=== PATIENT | female | born 1955 | race African-American/Black ===

== ENCOUNTER → 2021-03-06 11:49 | Outpatient (CLI) | payer OTHER, SELFPAY ==
[2021-03-06 14:10] LABS: COVID19 -Nasal RAPID Negative (Negative)
== END ==
PROVIDERS: PCP Physician Assistant Medical; Visit Provider Nurse Practitioner Family
DX: Z20.822 Contact with and (suspected) exposure to COVID-19 (principal)
CPT/HCPCS: 87635; C9803

== ENCOUNTER 2021-03-08 08:31 | Day surgery (SDC) | payer OTHER, SELFPAY ==
[2021-03-08] VITALS (9 sets, daily range): BP systolic 95–135; BP diastolic 59–85; PULSE 65–78; RESP 16; TEMP 36–36.4; O2SAT 96–100; BMI 28.3
--- NOTE | 2021-03-08 | PATH_ITS ---
[facility] Accession Number: [id number] . 01 Material submitted: . PART A: ileo-cecal valve - IC VALVE BIOPSY PART B: rectum - RECTAL EROSION/ULCER TISSUE BIOPSY . 02 Diagnosis: A. Ileocecal Valve, Biopsy: Tubular adenoma, three fragments. . B. Rectal Erosion/Ulcer, Biopsy: Ulcerated colonic mucosa with ischemica-type changes. Please see comment. Negative for granulomas, dysplasia and malignancy. MRV 03/10/2021 1135 Local . 02 Comment: B) The differential diagnosis for ischemia-type changes includes trauma/prolapse/solitary rectal ulcer syndrome, true vascular ischemia, and infection (i.e., enterohemorrhagic E. coli, C. difficile, etc.). . 02 Electronically signed: . Melanie Fletcher MD, Pathologist NPI- [id number] . 01 Gross description: . Part A: IC VALVE BIOPSY: Received in formalin are 2 fragment(s) of pace, soft tissue measuring 0.4 x 0.2 x 0.2 cm to 0.3 x 0.2 x 0.1 cm submitted entirely in 1 cassette(s) Part B: RECTAL EROSION/ULCER TISSUE BIOPSY: Received in formalin are 4 fragment(s) of pace, soft tissue measuring 0.2 x 0.2 x 0.1 cm to 0.2 x 0.1 x 0.1 cm submitted entirely in 1 cassette(s) /ANGELA 03/09/2021 0405 Local . 02 Pathologist provided ICD-10: D12.0, Z86.010 . 02 CPT . 122103, 143062 Performed at: 01 [facility] [address] [place] [address] [address] [facility], [place], [place] [id number] MD Micha Ponce MD Phone: [phone] Performed at: 02 [facility] [address] [place] [id number] MD Melanie Fletcher MD Phone: [phone]
--- NOTE | 2021-03-08 09:11 | PM.HP.1 ---
History of Present Illness History of Present Illness Date Patient Seen: 03/08/21 Time Patient Seen: 09:11 Chief complaint: DX COLONOSCOPY Patient History Medical History Colon polyp Constipation Encounter for cholecystectomy Fibromyalgia Hypertension PTSD (post-traumatic stress disorder) Tubular adenoma Surgical History History of section History of cholecystectomy Meds Home Medications and Allergies Home Medications Medication Instructions Recorded Confirmed Type Aleve See Rx Instructions .ROUTE 03/07/21 03/08/21 History .COMPLEX PRN Colace 100 mg 03/07/21 History Metamucil 03/07/21 History Vitamin D3 03/07/21 History aspirin 03/07/21 History hydrochlorothiazide 25 mg PO DAILY 03/07/21 03/08/21 History lisinopril 03/07/21 History lisinopril 20 mg tablet 20 mg PO DAILY 03/08/21 03/08/21 History Allergies Allergy/AdvReac Type Severity Reaction Status Date / Time Penicillins Allergy Intermediate Hives Verified 03/08/21 09:00 Sulfa (Sulfonamide Allergy Hives Verified 03/08/21 09:00 Antibiotics) Review of Systems Review of Systems ROS: Yes All systems reviewed with the patient and are negative except as otherwise documented Exam Const General: cooperative and comfortable Orientation: alert HENMS Head: normocephalic Ears: external ears normal Nose: external nose normal Face and sinus: normal facial exam Mouth: oral mucosae normal Eyes General: appearance normal, both eyes and all related structures Neck Neck: normal visual inspection Chest Chest: normal inspection of the chest Resp Effort & Inspection: normal respiratory effort Auscultation: clear to auscultation bilaterally Cardio Rate: regular rate Rhythm: regular rhythm Heart Sounds: no murmurs GI Inspection: normal to inspection Palpation: soft and No tender Auscultation: normal bowel sounds Skin General: no rashes or lesions noted and No jaundice Neuro General: patient alert and moves all extremities Cognition: normal cognition Speech: speech normal Extrem General: no pedal edema Psych Appearance: grossly normal Assessment & Plan Assessment & Plan narrative: Personal history of adenomatous colon polyp. Personal history of constipation. Colonoscopy is pursued today Time Spent With Patient Critical Care time: I spent a total of [] minutes of critical care time on this patient's care today; this time is exclusive of procedural time.
--- NOTE | 2021-03-08 09:13 | PM.PREOP ---
Pre-operative Note COVID-19 COVID-19 status: Negative Result date/Date tested (Pos, Neg/Pending): 03/06/21 Interval Note History & Physical reviewed/Exam performed by Physician: Yes Changes to H&P: No ASA Class (for procedural sedation): II
--- NOTE | 2021-03-08 10:15 | PM.OP.ENDO ---
Operative Date/Time/Diagnoses Date of procedure: 03/08/21 Time of procedure: 10:15 Pre-op diagnosis: Personal history of colon polyps and constipation Post-op diagnosis: same Procedure & Clinicians Study performed: Colonoscopy with hot snare polypectomy and biopsy Same procedure as scheduled: Yes Indications: Personal history of colon polyps and constipation Surgeon: Shane Puente Procedure Notes SCOAP/Timeout: Done Procedure in detail: After the risks and benefits were explained, written and verbal informed consent was obtained. The patient was brought into the procedure room and placed into the left lateral decubitus position. Conscious sedation medication was applied as per nursing documentation. Digital rectal examination was accomplished. The scope was introduced into the patient and advanced under direct visualization to the cecum as identified by the appendiceal orifice and ileocecal valve. The scope was slowly withdrawn to carefully examine the mucosa for any defects or lesions. Comprehensive imaging was accomplished throughout the rectum including the dentate line. The colon was decompressed, the scope was then removed from the patient who tolerated the procedure well. Bowel prep adequate Pediatric colonoscope Scope withdrawal time: 12 minutes Sedation minutes: 27 Complications: none Impression: Patient had a lengthy redundant colon. Abdominal pressure and the internal stiffening eugene were required for cecal intubation. Mild grade 1 and grade 2 internal hemorrhoids were noted nonbleeding nonthrombosed. There was a 6 mm sessile polyp on the ileocecal valve removed with hot snare polypectomy. In the rectum there was a small focus of eroded mucosa that appeared to perhaps represent an early stercoral ulceration. This was targeted for biopsy. Endoscopic diagnosis 1. Colon polyp 2. Grade 1-2 internal hemorrhoids 3. Focal rectal erosion Post-procedure Recommendations: Colonscopy in 5 years Plan for aftercare: 1. Await histopathology 2. Repeat colonoscopy 5 years 3. Aggressive bowel regimen with fiber supplementation for soft regular stools 4. Follow up GI clinic Disposition: PACU
== END 2021-03-08 11:00 | disposition home or self-care (01) ==
PROVIDERS: PCP Physician Assistant Medical; Referring Provider Internal Medicine Gastroenterology; Visit Provider Internal Medicine Gastroenterology
PROC: 0DJD8ZZ Inspection of Lower Intestinal Tract, Via Natural or Artificial Opening Endoscopic (ICD-10-PCS; CPT 45378; principal; 2021-03-08 09:30)
DX: D12.0 Benign neoplasm of cecum (principal); K62.6 Ulcer of anus and rectum; K64.1 Second degree hemorrhoids; Z86.010 Personal history of colon polyps; I10 Essential (primary) hypertension; M79.7 Fibromyalgia; F43.10 Post-traumatic stress disorder, unspecified; F17.200 Nicotine dependence, unspecified, uncomplicated
CPT/HCPCS: 45385; 45380

== ENCOUNTER 2022-01-11 10:45 | Emergency (ER) | payer OTHER, SELFPAY ==
[2022-01-11 10:56] VITALS: BP 169/81; PULSE 76; RESP 15; TEMP 36.1; O2SAT 100; BMI 29.4
--- NOTE | 2022-01-11 10:58 | DI.RAD.S_ITS ---
PROCEDURE: XR SACRUM COCCYX MIN 2V INDICATIONS: FALL ON SATURDAY TECHNIQUE: 3 views of the sacrum and coccyx acquired. COMPARISON: None. FINDINGS: Bones: No fractures or dislocations. No suspicious bony lesions. Soft tissues: Visualized bowel gas pattern is normal. No suspicious soft tissue densities. IMPRESSION: No radiographic evidence of fracture Approved by: Chuck Kong M.D. on 01/11/2022 at 11:06
[2022-01-11] MEDS: KETOROLAC 30 MG/ML VIAL 15 MG IM (12:45)
--- NOTE | 2022-01-11 13:50 | ED.FALL ---
HPI - Fall <SREE Jane - Last Filed: 01/11/22 13:58> General Chief Complaint: Fall Stated Complaint: Fall Saturday, tailbone pain, not getting better Time Seen by Provider: 01/11/22 12:06 Source: patient Mode of arrival: Ambulatory History of Present Illness HPI Narrative: This is a 66-year-old female who presents to the emergency department for worsening tailbone pain after she had a ground level fall four days ago onto her colleagues. She is concerned for a coccygeal fracture, states that she has been taking stool softeners which have been helpful, she will get a donut pillow from pharmacy today but states that her pain is pretty significant. She denies any blood in her stool, denies any weakness, or groin paresthesia. She states that NSAIDs cause her stomach upset, she has been taking Tylenol, states that she takes a leave sometimes, denies any lower extremity sensation changes states sitting is the most painful, she is ambulatory without assistive device.. Related Data Home Medications Medication Instructions Recorded Confirmed Magnus See Rx Instructions .Route 03/07/21 03/08/21 .COMPLEX PRN pain Colace 100 mg 03/07/21 Metamucil 03/07/21 Vitamin D3 03/07/21 aspirin 03/07/21 hydrochlorothiazide 25 mg PO DAILY 03/07/21 03/08/21 lisinopril 03/07/21 lisinopril 20 mg tablet 20 mg PO DAILY 03/08/21 03/08/21 Previous Rx's Medication Instructions Recorded diclofenac sodium 1 % topical gel 2 g topical QID #100 grams 01/11/22 hydroxyzine pamoate 25 mg capsule 25 mg PO BEDTIME #14 caps 01/11/22 (Vistaril) meloxicam 15 mg tablet 15 mg PO DAILY PRN pain #10 tabs 01/11/22 Allergies Allergy/AdvReac Type Severity Reaction Status Date / Time Penicillins Allergy Intermediate Hives Verified 01/11/22 10:56 Sulfa (Sulfonamide Allergy Hives Verified 01/11/22 10:56 Antibiotics) Review of Systems <SREE Jane - Last Filed: 01/11/22 13:58> Review of Systems Narrative: General: denies fever, chills Head/Neck: denies headache, neck pain Eyes: denies visual changes, eye pain Cardio: denies chest pain, palpitations Respiratory: denies shortness of breath, cough GI: denies abdominal pain, nausea, vomiting, or diarrhea : denies dysuria, hematuria or flank pain MSK: denies new joint pain, muscle weakness or swelling, endorses tailbone pain, denies any open wound Skin: denies rash, itching or wound Neuro: denies numbness, tingling, dizziness Patient History <SREE Jane - Last Filed: 01/11/22 13:58> Medical History Colon polyp Constipation Encounter for cholecystectomy Fibromyalgia Hypertension PTSD (post-traumatic stress disorder) Tubular adenoma Surgical History History of section History of cholecystectomy Social History household members: friend(s) Smoking Status: Current some day smoker alcohol intake: current Smoking Status: Current some day smoker alcohol intake frequency: holidays/special occasions only Substance Use Type: does not use Exam <SREE Jane - Last Filed: 01/11/22 13:58> Narrative Exam Narrative: Independently reviewed vitals signs and nursing notes. General: cooperative, comfortable, in no acute distress, well groomed Head: atraumatic, symmetrical facial expressions Neck: supple Eyes: equal round and reactive, EOMI, conjunctiva normal Nose: nares patent, no rhinorrhea Mouth/Throat: moist mucus membranes Cardiovascular: regular rate and rhythm, no peripheral edema, warm extremities Respiratory: normal effort, able to speak in complete sentences, no audible wheezing, stridor, or rales. No retractions or tachypnea. MSK: moves all extremities, neurovascularly intact, no weakness, normal tone Skin: brisk capillary refill, no rash, no erythema Neuro: normal speech and cognition, A&O x3 Psych: mental status is grossly normal, congruent mood, normal affect, pleasant and cooperative Initial Vital Signs Initial Vital Signs: Vital Signs Temperature 96.9 F L 01/11/22 10:56 Pulse Rate 76 01/11/22 10:56 Respiratory Rate 15 01/11/22 10:56 Blood Pressure 169/81 H 01/11/22 10:56 Pulse Oximetry 100 01/11/22 10:56 Oxygen Delivery Method 01/11/22 10:56 <Janiya Mckee DO - Last Filed: 01/13/22 19:43> Initial Vital Signs Initial Vital Signs: Vital Signs Temperature 96.9 F L 01/11/22 10:56 Pulse Rate 76 01/11/22 10:56 Respiratory Rate 15 01/11/22 10:56 Blood Pressure 169/81 H 01/11/22 10:56 Pulse Oximetry 100 01/11/22 10:56 Oxygen Delivery Method 01/11/22 10:56 Course <SREE Jane - Last Filed: 01/11/22 13:58> Orders Ordered: Discontinued Medications Ketorolac Tromethamine (Ketorolac 30 Mg/Ml Vial) 15 mg IM NOW ONE Stop: 01/11/22 12:35 Last Admin: 01/11/22 12:45 Dose: 15 mg Documented By: AT Vital Signs Vital signs: Vital Signs - 8 hr 01/11/22 10:56 Temperature 96.9 F L Pulse Rate 76 Respiratory Rate 15 Blood Pressure 169/81 H Pulse Oximetry 100 Oxygen Delivery Method Room Air <Janiya Mckee DO - Last Filed: 01/13/22 19:43> Orders Ordered: Discontinued Medications Ketorolac Tromethamine (Ketorolac 30 Mg/Ml Vial) 15 mg IM NOW ONE Stop: 01/11/22 12:35 Last Admin: 01/11/22 12:45 Dose: 15 mg Documented By: AT Vital Signs Vital signs: Vital Signs - 8 hr 01/11/22 10:56 Temperature 96.9 F L Pulse Rate 76 Respiratory Rate 15 Blood Pressure 169/81 H Pulse Oximetry 100 Oxygen Delivery Method Room Air MDM - Fall <SREE Jane - Last Filed: 01/11/22 13:58> Imaging Data Extremity x-ray #1: Radiologist's Impression: PROCEDURE:? XR SACRUM COCCYX MIN 2V ? INDICATIONS:? FALL ON SATURDAY ? TECHNIQUE:? 3 views of the sacrum and coccyx acquired.? ? COMPARISON:? None. ? FINDINGS:? ? Bones:? No fractures or dislocations.? No suspicious bony lesions.? ? Soft tissues:? Visualized bowel gas pattern is normal.? No suspicious soft tissue densities.? ? IMPRESSION:? No radiographic evidence of fracture ? ? ? Approved by: Chuck Kong M.D. on 01/11/2022 at 11:06? [facility] Narrative Medical decision making narrative: This is a 66-year-old female who presents to the emergency department for evaluation of her coccygeal pain after a ground level fall onto her tailbone four days ago. Her x-ray of her sacrum and coccyx show no radiographic evidence of fracture. Patient does have any step-offs or exquisite midline pain. She requests a Toradol injection, this was given to her, she was prescribed diclofenac gel, Vistaril to help her sleep, and meloxicam as needed for her pain. She requests Vistaril because she has difficulty getting comfortable and states it has been helpful for her in the past. Encouraged her to follow-up with her primary doctor if her pain gets any worse or if her mobility changes. Encouraged her to use ice, a donut pillow, topical diclofenac gel Vistaril as needed, anti-inflammatories and Tylenol as needed for her pain, and encouraged her you stool softeners to prevent constipation or worsening of her pain. Patient is appropriate and amenable to discharge home. Vital signs are stable on repeat examination is unremarkable. Patient has been informed of results. Patient has been given strict return to ER precautions for any new or worsening symptoms. Patient understands to follow up closely with outpatient providers as instructed. Patient understands plan and agrees to discharge home. All questions and concerns answered at this time. Discharge Plan Departure Patient Disposition: Home Clinical Impression: Acute coccygeal pain Instructions: Coccydynia Activity Restrictions/Additional Instructions: *You have been diagnosed with tailbone pain without any fracture. This should get better in 1-2 weeks. You can use ice packs, a donut, topical Voltaren gel, oral anti-inflammatories and Tylenol as needed for your pain. Please eat food and drink water if you are taking an anti-inflammatory. Follow-up with your primary doctor if this is ongoing. Topical Voltaren gel is a great option for an anti-inflammatory effect topically, please alternate this with your capsaicin cream. I hope you feel better soon. *What to do: *Please continue to take your regular medications as directed. [ x] New medication prescriptions sent to your pharmacy: [[facility] ] [ ] New medication written as a paper prescription [ ] No new medications given *Please follow up with your primary care provider in 2-3 days, call for an appointment. Let them know you were seen in the Emergency Department and that we asked that you be seen for follow-up. We will electronically transmit a record of today's note if your PCP is in our system *If you do not have a primary care provider please contact [phone] to establish care with one of the [facility] primary care providers. *Return to Emergency Department if you should have any new, worsening or concerning symptoms, such as [fever greater than 101F, chills, worsening pain, persistent vomiting or other bothersome symptoms] Prescriptions: New meloxicam 15 mg tablet 15 mg PO DAILY PRN (Reason: pain) Qty: 10 0RF Rx Instructions: Take with food and water, and Tums as necessary. diclofenac sodium 1 % gel 2 g topical QID Qty: 100 0RF Rx Instructions: Apply to area of pain up to 4 times daily. hydroxyzine pamoate [Vistaril] 25 mg capsule 25 mg PO BEDTIME Qty: 14 0RF No Action lisinopril Aleve See Rx Instructions .ROUTE .COMPLEX PRN (Reason: pain) Rx Instructions: per instructions Colace 100 mg Metamucil Vitamin D3 aspirin hydrochlorothiazide 25 mg PO DAILY lisinopril 20 mg tablet 20 mg PO DAILY Label Comments: TAKE ONE TABLET BY MOUTH ONE TIME DAILY Visit Report Forms: Patient Portal/API <Janiya Mckee, - Last Filed: 01/13/22 19:43> [facility] Attestation: I was immediately available in the department for consultation. Documentation has been reviewed.
== END 2022-01-11 12:53 | disposition home or self-care (01) ==
PROVIDERS: Emergency Provider Nurse Practitioner Critical Care Medicine
DX: M53.3 Sacrococcygeal disorders, not elsewhere classified (principal); W19.XXXA Unspecified fall, initial encounter
CPT/HCPCS: 72220; 96372; 99283; J1885

== ENCOUNTER 2024-03-03 12:41 | Emergency (ER) | payer OTHER, SELFPAY ==
[2024-03-03 12:46] VITALS: BP 151/88; PULSE 95; RESP 18; TEMP 37.1; O2SAT 99; BMI 29.6
[2024-03-03 13:52] LABS: Add Manual Diff / Slide Review NO; Basophils Absolute Auto 100 /uL (0-100); Basophils Percent Auto 0.6 % (0-2); Eosinophils Absolute Auto 300 /uL (0-450); Eosinophils Percent Auto 2.5 % (2-4); Hematocrit 42.9 % (36-46); Hemoglobin 13.9 g/dL (12.0-16.0); Lymphocytes Absolute Auto 3100 /uL (1100-4500); Lymphocytes Percent Auto 24.9 % (25-40); Mean Corpuscular HGB Conc 32.5 % (30-36); Mean Corpuscular Hemoglobin 26.6 PG (26-34); Mean Corpuscular Volume 81.8 fL (80-100); Monocytes Absolute Auto 1000 /uL (0-900); Monocytes Percent Auto 8.2 % (3-14); Neutrophils Absolute Auto 7800 /uL (1500-7000); Neutrophils Percent Auto 63.8 % (50-75); Platelet Count 340 X10^3/uL (150-400); Red Blood Cell Count 5.24 X10^6/uL (4.0-5.2); White Blood Cell Count 12.3 X10^3/uL (4.5-11.0)
[2024-03-03 13:59] LABS: Prothrombin Time 11.4 SECONDS (9.4-12.5)
--- NOTE | 2024-03-03 13:59 | ED.EXTPRO ---
HPI - Extremity Problem General Chief complaint: Extremity Problem,Nontraumatic Stated complaint: Hematoma right hip Time Seen by Provider: 03/03/24 13:52 Source: patient Mode of arrival: Ambulatory Limitations: no limitations History of Present Illness HPI Narrative: 69-year-old female history of hypertension dyslipidemia takes aspirin intermittently who presents with complaint of right hip hematoma been present for about 3 months. Initially started started with the right hip bursitis and developed after a steroid shot to the area. No other trauma or injuries. Patient denies fevers or chills no chest pain or shortness of breath. She states it is very painful. She states if she leans up against it bothers her quite a bit. She denies any chest pain or shortness of breath no other GI or urinary symptoms. She has set up follow up with Orthopedic surgery for March 26. Her goal is to have excision or drainage of the hematoma itself. She has been in contact with General surgery in orthopedic surgery through [facility] but has been unsuccessful of establishing our appointment. Patient has had labs and ultrasound at [facility] most recently 02/25/2024 that time hemoglobin was 13.9 with a hematocrit of 44. Ultrasound shows anterior lateral right hip soft tissue heterogeneous hypoechoic structure within subcutaneous soft tissue with the acoustic enhancement 8.2 x 5.5 x 5.2 cm represents likely organizing hematoma on records. Related Data Home Medications Medication Instructions Recorded Confirmed Aleve See Rx Instructions .Route 03/07/21 03/08/21 .COMPLEX PRN pain Colace 100 mg 03/07/21 Metamucil 03/07/21 Vitamin D3 03/07/21 aspirin 03/07/21 hydrochlorothiazide 25 mg PO DAILY 03/07/21 03/08/21 lisinopril 03/07/21 lisinopril 20 mg tablet 20 mg PO DAILY 03/08/21 03/08/21 Previous Rx's Medication Instructions Recorded diclofenac sodium 1 % topical gel 2 g topical QID #100 grams 01/11/22 hydroxyzine pamoate 25 mg capsule 25 mg PO BEDTIME #14 caps 01/11/22 (Vistaril) meloxicam 15 mg tablet 15 mg PO DAILY PRN pain #10 tabs 01/11/22 acetaminophen 500 mg tablet 1,000 mg (2 x 500 mg) PO Q6H PRN 03/03/24 (Acetaminophen Extra Strength) pain #30 tabs Allergies Allergy/AdvReac Type Severity Reaction Status Date / Time Penicillins Allergy Intermediate Hives Verified 01/11/22 10:56 Sulfa (Sulfonamide Allergy Hives Verified 01/11/22 10:56 Antibiotics) Review of Systems Review of Systems ROS Unobtainable: All systems reviewed & are unremarkable except as noted in HPI and below Patient History Medical History Encounter for cholecystectomy Fibromyalgia Colon polyp Tubular adenoma Constipation PTSD (post-traumatic stress disorder) Hypertension Surgical History History of cholecystectomy History of section Social History household members: friend(s) Smoking Status: Current some day smoker alcohol intake: current Smoking Status: Current some day smoker tobacco type: cigarettes alcohol intake frequency: holidays/special occasions only Substance Use Type: does not use Exam Narrative Exam Narrative: GENERAL: Alert and oriented x three, well-appearing female in mild distress. HEENT: Head normocephalic, atraumatic, EOMI, pupils reactive, face symmetric, moist mucous membranes NECK: Supple, full range of motion CARDIOVASCULAR: Regular rate and rhythm without murmurs, rubs or gallops. RESPIRATORY: Breath sounds equal bilaterally, no wheezes rales or rhonchi. ABDOMEN: Soft, nontender. Normoactive bowel sounds all 4 quadrants. No guarding or rebound, rigidity, no mass : No CVA tenderness EXTREMITIES: Normal range of motion, no clubbing or edema. Neurovascularly intact. Patient has a large right hip hematoma there is no warmth or erythema overlying, no ecchymosis noted. Patient is tender to the touch. Cap refill less than 2 seconds bilateral lower extremities. Normal sensation throughout. NEUROLOGICAL: Cranial nerves II through XII grossly intact. Moving all extremities SKIN: Warm, dry, no petechiae, no rashes or lesions. Initial Vital Signs Initial Vital Signs: Vital Signs Temperature 98.7 F 03/03/24 12:46 Pulse Rate 95 H 03/03/24 12:46 Respiratory Rate 18 03/03/24 12:46 Blood Pressure 151/88 H 03/03/24 12:46 Pulse Oximetry 99 09/17/24 12:46 Oxygen Delivery Method Room Air 03/03/24 12:46 Course Orders Ordered: Discontinued Medications Acetaminophen (Acetaminophen 325 Mg Tablet) 650 mg PO NOW ONE Stop: 03/03/24 14:31 Last Admin: 03/03/24 14:34 Dose: 650 mg Documented By: SAHIL Vital Signs Vital signs: Vital Signs - 8 hr 03/03/24 12:46 Temperature 98.7 F Pulse Rate 95 H Respiratory Rate 18 Blood Pressure 151/88 H Pulse Oximetry 99 Oxygen Delivery Method Room Air MDM - Extremity (Nontraumatic) Lab Data 03/03/24 13:40 03/03/24 13:40 Labs: Lab Results 03/03/24 Range/Units 13:40 WBC 12.3 H (4.5-11.0) X10^3/uL RBC 5.24 H (4.0-5.2) X10^6/uL Hgb 13.9 (12.0-16.0) g/dL Hct 42.9 (36-46) % MCV 81.8 (80-100) fL MCH 26.6 (26-34) PG MCHC 32.5 (30-36) % RDW 14.0 (11.6-14.8) % Plt Count 340 (150-400) X10^3/uL Neut % (Auto) 63.8 (50-75) % Lymph % (Auto) 24.9 L (25-40) % [place] % (Auto) 8.2 (3-14) % Eos % (Auto) 2.5 (2-4) % Baso % (Auto) 0.6 (0-2) % Neut # (Auto) 7800 H (4895-5627) /uL Lymph # (Auto) 3100 (6445-4484) /uL [place] # (Auto) 1000 H (0-900) /uL Eos # (Auto) 300 (0-450) /uL Baso # (Auto) 100 (0-100) /uL PT 11.4 (9.4-12.5) SECONDS INR 1.0 (0.9-1.3) APTT 31 (25.1-36.5) SECONDS Sodium 135 L (137-145) mmol/L Potassium 3.6 (3.4-5.1) mmol/L Chloride 98 (98-107) mmol/L Carbon Dioxide 30 (22-32) mmol/L BUN 20 H (7-17) mg/dL Creatinine 1.04 (0.52-1.04) mg/dL Estimated GFR 58 L (>60) mL/min BUN/Creatinine Ratio 19.2 (6-22) Glucose 113 H (80-110) mg/dL Calcium 9.5 (8.4-10.2) mg/dL Total Bilirubin 0.5 (0.2-1.3) mg/dL AST 28 (14-36) IU/L ALT 14 (<35) IU/L Alkaline Phosphatase 57 (38-126) U/L Total Protein 7.7 (6.3-8.2) g/dL Albumin 4.1 (3.5-5.0) g/dL Globulin 3.6 (1.7-4.1) g/dL Albumin/Globulin Ratio 1.1 (1.0-2.8) MDM Narrative Medical decision making narrative: 69-year-old female with known hematoma for the past 2-3 months. Discussed with patient she states it has not enlarged quite a bit she was looking more for assistance in getting set up for follow-up. Reviewed her labs from today as well as from [facility] labs appear consistent with priors. She states not a lot of increase in size and ultrasound of both patient myself feel we can hold off on repeat imaging at this time. She does request a prescription for Tylenol extra strength. Also provided patient with her ultrasound report and labs from [facility] so she has these available for her appointment with Orthopedic surgery. Labs show white count of 12.3 patient was 11.3 on the 24 of February, hemoglobin is 13.9 with a hematocrit of 42.9 fairly consistent with priors of 13.9 and 44 on the 24 of February as well from outside facility, platelets are 340. BNP shows a sodium of 135 potassium 3.6 chloride 98 CO2 of 30 BUN 20 creatinine 1.04 glucose of 113, LFTs are negative. Patient had ultrasound outside facility able to see the written report which shows an 8.27 x 5.56 x 5.24 cm heterogeneous hypoechoic structure within subcutaneous soft tissue shows no internal vascularity likely represents organizing hematoma. Discharge Plan Departure Patient Disposition: Home Clinical Impression: Hematoma of right hip Activity Restrictions/Additional Instructions: I hope you have success with your follow up appointment with Orthopedic surgery to have your hematoma treated. A copy of your labs and US report from [facility] are in your discharge papers. You can take Tylenol extra-strength (500mg) 1-2 tablets every 6 hours as needed for pain. Prescription was sent to [facility] in [place]. If you find it helpful you can do warm moist heat to the affected area. You can wrapped the affected area daily this may help with discomfort as well. Please return for fevers rapidly worsening swelling, new numbness tingling or weakness new bruising or skin changes, any inappropriate bruising or bleeding or other new or concerning changes. Prescriptions: New acetaminophen [Acetaminophen Extra Strength] 500 mg tablet 1,000 mg PO Q6H PRN (Reason: pain) Qty: 30 0RF No Action lisinopril Aleve See Rx Instructions .ROUTE .COMPLEX PRN (Reason: pain) Rx Instructions: per instructions Colace 100 mg Metamucil Vitamin D3 aspirin hydrochlorothiazide 25 mg PO DAILY lisinopril 20 mg tablet 20 mg PO DAILY Patient Comments: TAKE ONE TABLET BY MOUTH ONE TIME DAILY meloxicam 15 mg tablet 15 mg PO DAILY PRN (Reason: pain) Qty: 10 0RF Rx Instructions: Take with food and water, and Tums as necessary. diclofenac sodium 1 % gel 2 g topical QID Qty: 100 0RF Rx Instructions: Apply to area of pain up to 4 times daily. hydroxyzine pamoate [Vistaril] 25 mg capsule 25 mg PO BEDTIME Qty: 14 0RF Referrals: Miscellaneous,DoctorMD [Primary Care Provider] - Linette Powers MD [Physician] - Stand Alone Forms: Patient Portal/API
[2024-03-03 14:02] LABS: PTT Partial Thromboplastin Tim 31 SECONDS (25.1-36.5)
[2024-03-03 14:10] LABS: Alanine Aminotransferase 14 IU/L (<35); Albumin 4.1 g/dL (3.5-5.0); Albumin Globulin Ratio 1.1 (1.0-2.8); Alkaline Phosphatase 57 U/L (38-126); Aspartate Aminotransferase 28 IU/L (14-36); BUN Creatinine Ratio 19.2 (6-22); Bilirubin Total 0.5 mg/dL (0.2-1.3); Blood Urea Nitrogen 20 mg/dL (7-17); Calcium 9.5 mg/dL (8.4-10.2); Carbon Dioxide 30 mmol/L (22-32); Chloride 98 mmol/L (98-107); Estimated Glomerular Filt Rate 58 mL/min (>60); Globulin 3.6 g/dL (1.7-4.1); Glucose 113 mg/dL (80-110); HEMOLYSIS < 15 (0-50); Potassium 3.6 mmol/L (3.4-5.1); Sodium 135 mmol/L (137-145); Total Protein 7.7 g/dL (6.3-8.2)
[2024-03-03] MEDS: ACETAMINOPHEN 325 MG TABLET 650 MG PO (14:34)
[2024-03-03 14:53] VITALS: BP 133/93; PULSE 94; RESP 20; TEMP 37; O2SAT 98
== END 2024-03-03 14:50 | disposition home or self-care (01) ==
PROVIDERS: Emergency Provider Emergency Medicine
DX: S70.01XA Contusion of right hip, initial encounter (principal); R79.89 Other specified abnormal findings of blood chemistry
CPT/HCPCS: 36415; 80053; 85025; 85610; 85730; 99283

== ENCOUNTER 2024-03-16 11:29 | Observation (INO) | payer OTHER, SELFPAY ==
[2024-03-16] VITALS (18 sets, daily range): BP systolic 96–147; BP diastolic 54–85; PULSE 64–92; RESP 12–30; TEMP 35.9–36.8; O2SAT 96–100; BMI 28.3
--- NOTE | 2024-03-16 | PATH_ITS ---
[facility] Accession Number: [id number] No. of containers..01 Tissue . 01 Material submitted: . hip - RIGHT HIP . 01 Clinical history: . DEEP TISSUE . 01 Diagnosis: RIGHT HIP DEEP TISSUE, EXCISION: Acute suppurative inflammation involving fibroadipose and muscular tissue, consistent with abscess. Negative for granulomatous inflammation. Negative for malignancy. MRV 03/19/2024 1526 Local . 01 Comment: Please correlate with pending bacterial and fungal culture results. . 01 Electronically signed: . Artur Bay MD, Pathologist NPI- [id number] . 01 Gross description: . Received in formalin with two patient identifiers and right hip deep tissue, are multiple fragments of yellow to hemorrhagic soft tissue with no skin identified aggregating to 5.4 x 3.2 x 1.9 cm. The cut surfaces are yellow to pace, soft, and hemorrhagic. Customer Success Director sections are submitted in A1-A2. ([id number]) /MRV 03/18/2024 0414 Local . 01 Pathologist provided ICD-10: M71.00 . 01 CPT . 844602 Specimen Comment: A courtesy copy of this report has been sent to [phone] Performed at: [address] [facility] [address], [place], [place] [id number] MD Micha Ponce MD Phone: [phone]
--- NOTE | 2024-03-16 12:21 | PC.NURSE ---
Patient arrived to room 1025 to Room 208 via w/ch, direct admit from MD Powers's office. She is A&OX4, VSS, afebrile on RA. She states her pain is 6-7/10 to R hip. Admmission assessment completed, call light reach, PIV established.
--- NOTE | 2024-03-16 12:41 | DI.MRI.S_ITS ---
PROCEDURE: MR HIP RT WO/W CON INDICATIONS: r/o infected hip verses hematoma TECHNIQUE: Noncontrast coronal T1 spin echo and STIR, sagittal T1 spin echo with fat saturation and STIR, axial T1 spin echo and T2 fast spin echo with fat saturation. After the administration of contrast, axial/sagittal/coronal T1 spin echo with fat saturation through the right hip . COMPARISON: [facility] Outside Film, MR, MR PELVIS WITH/WITHOUT CONTRAST, 11/22/2023, 12:48. FINDINGS: Image quality: Excellent. Bones: Marrow signal of the visualized lower lumbar spine is unremarkable. The visualized sacrum, and bilateral sacroiliac joints are unremarkable. Mild degenerative changes of bilateral hips. No acute fracture or dislocation of either hip. No avascular necrosis of either femoral head. Soft tissues: There is a 3.4 x 6.2 by 6.9 cm (axial by craniocaudal dimension) fluid collection in the subcutaneous fat of the right lateral upper thigh, at the level of the right subtrochanteric femur. There is internal T2 hypointensity within this fluid collection, likely representing small amount air. Marked subcutaneous edema surrounding this fluid collection, with associated skin thickening. There is suggestion of a tract extending to the skin. The right iliopsoas, adductor, hamstring, and the right gluteus minimus and medius are remarkable. IMPRESSION: 1. Interval development of 6.9 cm fluid collection with associated air in the subcutaneous fat of the right lateral upper thigh , suggestion of small sinus tract extending to the skin, raising concern for abscess. 2. Mild degenerative changes of bilateral hips. Dictated by: Anayeli Keita M.D. on 03/16/2024 at 16:52 Approved by: Anayeli Keita M.D. on 03/16/2024 at 17:00
[2024-03-16] MEDS: ACETAMINOPHEN 325 MG TABLET 975 MG PO (13:10)
[2024-03-16 13:57] LABS: Add Manual Diff / Slide Review NO; Basophils Absolute Auto 100 /uL (0-100); Eosinophils Absolute Auto 300 /uL (0-450); Hematocrit 36.1 % (36-46); Hemoglobin 11.9 g/dL (12.0-16.0); Lymphocytes Absolute Auto 2700 /uL (1100-4500); Lymphocytes Percent Auto 29.7 % (25-40); Mean Corpuscular HGB Conc 33.1 % (30-36); Mean Corpuscular Hemoglobin 26.9 PG (26-34); Mean Corpuscular Volume 81.2 fL (80-100); Monocytes Absolute Auto 800 /uL (0-900); Monocytes Percent Auto 8.8 % (3-14); Neutrophils Absolute Auto 5200 /uL (1500-7000); Neutrophils Percent Auto 57.5 % (50-75); Platelet Count 430 X10^3/uL (150-400); Red Blood Cell Count 4.44 X10^6/uL (4.0-5.2); Red Cell Distribution Width 13.3 % (11.6-14.8); White Blood Cell Count 9.1 X10^3/uL (4.5-11.0)
--- NOTE | 2024-03-16 14:07 | PC.NURSE ---
Lab reported they were unable to draw labs initially and sent second artist and repertoire manager to draw. 2nd artist and repertoire manager able to draw only 1 blood culture at this time. Dr. Powers notified. MRI reports they can do her scan at 1415, preop notified, Dora KNIGHT picked up patient at 1405 and will coordinate with radiology to have her scan done before surgery.
[2024-03-16 14:19] LABS: Erythrocyte Sedimentation Rate 62 MM/HR (0-20)
--- NOTE | 2024-03-16 14:21 | SUR.HOLD ---
Pt to MRI in WC.
[2024-03-16 14:23] LABS: C-Reactive Protein Quant 12.4 mg/dL (<1.0)
[2024-03-16] MEDS: LACTATED RINGERS 1,000 ML 42 ML IV ×2 (14:24→16:28)
--- NOTE | 2024-03-16 15:17 | SUR.HOLD ---
1505 Pt back from radiology.
--- NOTE | 2024-03-16 15:21 | PM.PREOP ---
Pre-operative Note Interval Note History & Physical reviewed/Exam performed by Physician: Yes Changes to H&P: Yes H&P completed within 30 days and has changed as indicated here:: Her pain worsened over the weekend and she noted the onset of spontaneous drainage from her right hip. She contacted the office and was admitted urgently for further workup with an MRI scan with the plan for operative intervention. Her MRI scan is most consistent with an abscess. It does not appear to extend down to the bone. I have recommended irrigation and debridement and I plan to send deep tissue for culture and sensitivity, fungal, PCR, and pathology. The procedure options risks benefits and complications were discussed in detail. We will proceed with surgery on a semi-urgent basis.
--- NOTE | 2024-03-16 15:58 | SUR.OPER ---
Lateral on padded OR bed. Gel axillary roll. Arms secured on padded armboard with pillow supporting top arm. Padded hip positioner braces x4 - anterior and posterior chest and pelvis. Additional gel pad used anterior pelvis. Gel pad under bottom leg from knee to foot and secured with tape over sheet.
[2024-03-16] MEDS: SODIUM CHLORIDE IRRIG SOLUTION 3,000 ML, GENTAMICIN 240 MG IRR (16:25)
[2024-03-16] MEDS: VANCOMYCIN 1,000 MG VIAL 1000 MG TOP (16:25)
[2024-03-16] MEDS: CEFAZOLIN 2 GM/100 ML PREMIX 100 ML IV (16:29)
[2024-03-16] MEDS: HYDROMORPHONE 1 MG INJ IV ×2 (17:02→17:13)
[2024-03-16] MEDS: OXYCODONE IR 5 MG TABLET PO ×2 (17:07→21:48)
[2024-03-16] MEDS: hydrOXYzine 50 MG/ML INJ 25 MG IM (17:07)
--- NOTE | 2024-03-16 17:57 | PM.OP.1 ---
Operative Date/Time/Diagnoses Date of procedure: 03/16/24 Time of procedure: 15:30 Pre-op diagnosis: Right thigh mass, probable abscess Post-op diagnosis: same Procedure & Clinicians Procedure: Irrigation and excisional debridement of right thigh mass and trochanteric bursectomy. Same procedure as scheduled: Yes Indications: This is a 69-year-old who is 3 months ago had a cortisone injection into her right hip trochanteric region for probable trochanteric bursitis. She noted increased swelling and pain in the right hip area. She had a mildly elevated white count and noted progressive enlargement of her right thigh mass. She was seen about 3 days ago she noted worsening over the weekend and spontaneous drainage. She had a preoperative MRI scan done to define the extent of the soft tissue swelling and mass. Surgeon: Linette Powers Click Yes if Unassisted: Yes Anesthesia Type: General Operative Notes Findings: Large about 8 cm mass in the subcutaneous tissue which extended down to the trochanteric area trochanteric bursal area, gross pus, no active bleeding Closure Type: primary Specimen(s): other (Pathology, multiple cultures for bacterial and fungal cultures as well as AFB and PCR for bacterial and fungal) Applied: drain(s) Estimated Blood Loss (mL): 50 Blood products transfused: none Procedure in detail: Patient was brought to the operating room. She underwent induction of general anesthesia. She was carefully positioned in the lateral decubitus position with the right side up. A time-out was performed. Antibiotics were initially held in order to get optimum cultures. Patient was prepped and draped sterilely. About a 5 cm lateral skin incision was made. There was gross purulence noted. Swabs were sent for culture and sensitivity. Dissection was carried out down through the subcutaneous tissues. There was necrotic tissue. About an 8 cm cavity with fibrinous debris and encapsulation was encountered. This was meticulously removed and debrided. It was an excisional debridement removing subcutaneous tissues. Dissection was carried out down to the level of the trochanter and the trochanteric bursa and fascia a trochanteric bursectomy was performed. All abnormal tissue as well as some of the overlying grossly abnormal skin was meticulously resected. The wound was irrigated extensively with about 3 L of fluid. Antibiotics were given. Hemostasis was achieved with the Bovie cautery. A drain was placed. THE DRAIN WAS SEWN IN WITH A 3-0 NYLON. The wound was closed with near-far far-near interrupted nylon. Ivelisse dressing was placed. THE WOUND WAS DRESSED STERILELY. Patient tolerated the procedure well transferred to recovery room in satisfactory condition. Complications: none Post-operative Condition: stable Disposition: Acute Care Plan for aftercare: IV antibiotics for 48 hours. Leave drain in for 48 hours. THE DRAIN IS SEWN IN. Check culture and sensitivity to define antibiotics. Anticipate home on oral antibiotics in about 48 hours.
[2024-03-16] MEDS: ASPIRIN EC 81 MG TABLET PO (21:48)
[2024-03-16] MEDS: DOCUSATE 100 MG CAPSULE PO (21:48)
[2024-03-16] MEDS: SENNOSIDES 8.6 MG TABLET 17.2 MG PO (21:48)
[2024-03-16] MEDS: LACTATED RINGERS 1,000 ML 100 ML IV (22:48)
[2024-03-17] MEDS: hydrOXYzine HCL 25 MG TABLET PO (00:15)
[2024-03-17] MEDS: ACETAMINOPHEN 325 MG TABLET 650 MG PO ×2 (00:16→08:53)
[2024-03-17 00:55] VITALS: BP 101/62; PULSE 95; RESP 18; TEMP 36.4; O2SAT 98
[2024-03-17] MEDS: VANCOMYCIN 1,000 MG/200 ML PIGGYBACK 200 MG IV ×2 (03:42→20:43)
[2024-03-17] MEDS: OXYCODONE IR 5 MG TABLET PO ×2 (05:37→14:59)
[2024-03-17 06:57] LABS: Add Manual Diff / Slide Review NO; Basophils Absolute Auto 0 /uL (0-100); Basophils Percent Auto 0.6 % (0-2); Eosinophils Absolute Auto 300 /uL (0-450); Eosinophils Percent Auto 3.8 % (2-4); Hematocrit 28.7 % (36-46); Hemoglobin 9.6 g/dL (12.0-16.0); Lymphocytes Absolute Auto 2300 /uL (1100-4500); Lymphocytes Percent Auto 30.6 % (25-40); Mean Corpuscular HGB Conc 33.5 % (30-36); Mean Corpuscular Hemoglobin 26.9 PG (26-34); Mean Corpuscular Volume 80.4 fL (80-100); Monocytes Absolute Auto 700 /uL (0-900); Monocytes Percent Auto 9.1 % (3-14); Neutrophils Absolute Auto 4300 /uL (1500-7000); Neutrophils Percent Auto 55.9 % (50-75); Platelet Count 397 X10^3/uL (150-400); Red Blood Cell Count 3.57 X10^6/uL (4.0-5.2); Red Cell Distribution Width 13.2 % (11.6-14.8); White Blood Cell Count 7.7 X10^3/uL (4.5-11.0)
[2024-03-17 07:07] LABS: BUN Creatinine Ratio 17.4 (6-22); Blood Urea Nitrogen 16 mg/dL (7-17); Calcium 8.7 mg/dL (8.4-10.2); Carbon Dioxide 27 mmol/L (22-32); Chloride 102 mmol/L (98-107); Estimated Glomerular Filt Rate > 60 mL/min (>60); Glucose 88 mg/dL (80-110); HEMOLYSIS < 15 (0-50); Potassium 3.7 mmol/L (3.4-5.1); Sodium 133 mmol/L (137-145)
--- NOTE | 2024-03-17 07:18 | P.PN_ITS ---
Subjective Subjective Date Patient Seen: 03/17/24 Time Patient Seen: 07:19 Interval history: Nicolasa is found lying comfortably in bed. Says she is had no increase in pain since the procedure yesterday. She is able to ambulate with assistance of a walker. She states that her drain was exchanged this morning. No increase in pain numbness or tingling of the right lower extremity. Exam Vital Signs (past 8 hours): - 03/17/24 00:55 Temperature 97.5 F L Pulse Rate 95 H Respiratory Rate 18 Blood Pressure 101/62 Pulse Oximetry 98 Oxygen Flow Rate 0 Oxygen Delivery Method Room Air Oxygen Flow Rate 0 Narrative Exam Narrative: Patient found lying comfortably in bed. Ivelisse dressing and drain are functional. Dressing is clean dry and intact. Patient able to dorsiflex and plantarflex at the ankle against resistance, bilaterally. Sensation intact to light touch throughout the lower extremities bilaterally. Resp Effort & Inspection: normal respiratory effort and able to speak in complete sentences Objective Labs 03/17/24 06:20 03/17/24 06:20 Labs: Laboratory Results - last 24 hr 03/16/24 03/17/24 13:43 06:20 WBC 9.1 7.7 RBC 4.44 3.57 L Hgb 11.9 L 9.6 L Hct 36.1 28.7 L MCV 81.2 80.4 MCH 26.9 26.9 MCHC 33.1 33.5 RDW 13.3 13.2 Plt Count 430 H 397 Neut % (Auto) 57.5 55.9 Lymph % (Auto) 29.7 30.6 [place] % (Auto) 8.8 9.1 Eos % (Auto) 3.0 3.8 Baso % (Auto) 1.0 0.6 Neut # (Auto) 5200 4300 Lymph # (Auto) 2700 2300 [place] # (Auto) 800 700 Eos # (Auto) 300 300 Baso # (Auto) 100 0 ESR 62 H Sodium 133 L Potassium 3.7 Chloride 102 Carbon Dioxide 27 BUN 16 Creatinine 0.92 Estimated GFR > 60 BUN/Creatinine Ratio 17.4 Glucose 88 Calcium 8.7 C-Reactive Protein 12.4 H PFSH Medical History Encounter for cholecystectomy Fibromyalgia Colon polyp Tubular adenoma Constipation PTSD (post-traumatic stress disorder) Hypertension Surgical History History of cholecystectomy History of section Social History household members: friend(s) Smoking Status: Current some day smoker alcohol intake: current Assessment & Plan Post-op Postoperative Procedures: Procedures Operation Date: 03/16/24 14:45 Actual Procedure Side Surgeon p Incision and Drainage Hip Abcess Right Linette Jefferson Powers MD Postoperative day: 1 Postoperative status: doing well Postoperative plan: routine post-op care Postoperative plan narrative: Dr. Powers jen ordered vancomycin 1000 mg every 12 hours for 48 hours post op. Drain be left in for 48 hours. Note DRAIN IS SEWN IN. Await culture and sensitivity to define appropriate oral antibiotics. Multimodal pain control. Aspirin 81 mg twice a day for DVT prophylactics. Ambulate with assistive devices. Quality VTE Deep Vein Thrombosis/Pulmonary Embolism Present on Admission: No
[2024-03-17 08:00] VITALS: BP 106/70; PULSE 73; RESP 14; TEMP 36; O2SAT 100
[2024-03-17] MEDS: polyethylene glycoL 3350 17 GM POWD.PACK PO (08:53)
[2024-03-17] MEDS: lisinopriL 20 MG TABLET PO (08:53)
[2024-03-17] MEDS: hydroCHLOROthiazide 25 MG TABLET PO (08:53)
[2024-03-17] MEDS: DOCUSATE 100 MG CAPSULE PO ×2 (08:53→20:44)
[2024-03-17] MEDS: ASPIRIN EC 81 MG TABLET PO ×2 (08:53→20:44)
[2024-03-17] MEDS: CHOLECALCIFEROL (VITAMIN D3) 1,000 UNIT TABLET 1000 UNIT PO (08:53)
--- NOTE | 2024-03-17 09:25 | PT.IIE ---
Current Diagnoses Cutaneous abscess of right lower limb (03/16/24) Surgery Performed Operation Date: 03/16/24 14:45 Actual Procedures p Incision and Drainage Hip Abcess(Right) - Linette Powers MD Surgical History (Last Reviewed 03/03/24 @ 14:35 by Janiya Mckee DO) History of section History of cholecystectomy Medical History (Last Reviewed 03/03/24 @ 14:35 by Janiya Mckee DO) Colon polyp Constipation Encounter for cholecystectomy Fibromyalgia Hypertension PTSD (post-traumatic stress disorder) Tubular adenoma Physical Therapy Inpatient Evaluation/Re-Eval M1 PT/OT-IP Prior Functional Status Start: 03/17/24 12:35 Freq: NEEDED Status: Active Protocol: Document 03/17/24 09:25 AB (Rec: 03/17/24 12:54 AB [id number]) Medical Review Prior Functional Status Medical History Reviewed Yes Communication able to make needs known Mobility and Gait pt stated that she was indpeendent with all mobilities and ambulation without AD Social History Household Members children Living Arrangements House Number of Floors (Floors) Two Floors Number of Stairs To Enter/Railing? has a chair lift to get to 2nd level bedroom has 2 steps without rails to enter the house Home Environment Standard Height Toilet,Walk in Shower Home Equipment Four Wheel Walker,Straight Cane,Shower Seat without Backrest,Hand Held Shower,Grab Bars In Shower M2 PT-IP Current Condition Start: 03/17/24 12:35 Freq: NEEDED Status: Active Protocol: Document 03/17/24 09:25 AB (Rec: 03/17/24 12:54 [id number]) Physical Therapy Current Condition Current Condition Evaluation Date 03/17/24 Treatment Diagnosis s/p I&D R thigh and R trochanteric bursectomy; difficulty in walking Onset Date 03/16/24 M3 PT-IP Subjective Start: 03/17/24 12:35 Freq: NEEDED Status: Active Protocol: Document 03/17/24 09:25 AB (Rec: 03/17/24 12:54 [id number]) Subjective Physical Therapy Visit Type Type Initial Evaluation Visit Start Time 09:25 Visit Stop Time 10:05 Number of CONFIGURATION RELEASE MANAGER Visits 0 Physical Therapy Visit Comments Patient Comments agreeable to do PT Therapy Pain Assessment Pain When Pain Assessed At Rest Pain Present Pain Present Pain Reported Location R hip Intensity 4 Scale Used Numeric (0 - 10) Pain Management Techniques Apply Cold,Distraction, Modification of Treatment,Re- positioning,Timing of Activity with Medications M4 PT-IP Mobility and Gait Start: 03/17/24 12:35 Freq: NEEDED Status: Active Protocol: Document 03/17/24 09:25 AB (Rec: 03/17/24 12:54 AB [id number]) PT-Bed Mobility Assessment Supine to Sit Supine to Sit Independent Sit to Supine Sit to Supine Independent PT-Transfer Assessment Sit to and From Stand Sit to and from Stand Standby Assistance,Use of Upper Extremities Transfers Transfer Destination Bed,Chair Transfer Technique ambulated Transfer Ability Level of Assist Standby Assistance,Use of Upper Extremities Comments Mobility Comments pt sitting on the chair with daughter in room. pt agreeable to do PT. obtained PLOF and home set up. pt completed sit to stand SBA and ambulated in room using FWW ~ 30 ft SBA. sat on EOB. completed bed mobility mod I. pt ambulated back to the chair using FWW SBA. assessed ambulation without AD and pt able to completed SBA ~ 20 ft SBA. presents with antalgic gait and increase guarding. pt completed up/down step stool without AD SBA. pt agreed to use a walker for long distance ambulation but stated that she has a 4WW. assessed ambulation using 4WW. educated pt on 4WW use/brakes . pt ambulated in room using 4WW ~ 35 ft SBA. pt sat back on chair. positioned on the chair. call light and table within reach. informed pt that no further PT needed at this time and agreed. informed pt to ambulate with nursing staff when able. informed nurse. Gait Assessment Gait Gait Assistance Required: Standby Assistance Distance (Feet) 35 Able to Maintain Weight Bearing Status Yes During Gait Assistive Devices Assistive Device None,Gait Belt,Front Wheeled Walker,4 Wheeled Walker Orthotic/Prosthetic Devices or Brace: No Gait Deviations General Gait Pattern Antalgic,Decreased Stride Length,Decreased Feet Clearance Factors Limiting Gait Function Factors Limiting Gait Function Decreased Activity Tolerance, Decreased Strength,Limited Range of Motion,Pain,Poor Balance Stair Climbing Assessment Evaluation Level of Assist On Stairs Standby Assistance Devices Stair Climbing Assistive Devices None Technique/Endurance Stair Climbing Direction Ascend and Descend Stair Climbing Technique Step to Step Number of Steps Climbed 1 Query Text: Stair Climbing Set # Repetitions (reps) 2 PT-Balance Assessment Sitting Balance and Reactions Static Sitting Balance Ability Normal Dynamic Sitting Balance Ability Good Standing Balance and Reactions Static Standing Balance Ability Good Dynamic Standing Balance Ability Fair Device Used without AD M5 PT-IP Objective Assessments Start: 03/17/24 12:35 Freq: NEEDED Status: Active Protocol: Document 03/17/24 09:25 AB (Rec: 03/17/24 12:54 [id number]) Orientation Orientation/Cognition Level of Alertness Alert Orientation Name,Age,Birthday,Month,Date, Year,Day of Week,Place, Situation Language Function Ability No Deficits Noted Safety Awareness Understands Safety Issues Memory Description No Deficits Noted Gross Range of Motion Lower Extremity ROM Assessment Within Functional Limits Strength Lower Extremity Strength Assessment Within Functional Limits Coordination Assessment Gross Coordination Gross Coordination WNL Sensation Assessment Sensation Gross Sensation WNL Muscle Tone Muscle Tone WNL Yes M6 PT-IP Treatment Start: 03/17/24 12:35 Freq: NEEDED Status: Active Protocol: Document 03/17/24 09:25 AB (Rec: 03/17/24 12:54 [id number]) Physical Therapy Treatment Education Education Provided Safety M7 PT-IP Assessment and Plan Start: 03/17/24 12:35 Freq: NEEDED Status: Active Protocol: Document 03/17/24 09:25 AB (Rec: 03/17/24 12:54 [id number]) PT Summary Assessment and Plan Potential Rehabilitation Potential Good Status of Condition at Evaluation Stable Summary Impairments Pain,Gait,Activity Tolerance Assessment Summary pt is a 69 y/o F who underwent I&D for R thigh mass and trochanteric bursectomy POD 1. pt requiring SBA with transfers and ambulation using FWW/4WW. able to ambulate without AD but with increase guarding and antalgic gait with c/o increase pain. pt agreed to use 4WW for ambulation for long distance mobilty but may ambulate without AD for short distances . pt plans to go home and will have her family to assist her. No further PT needs at this time. Frequency of Treatment Frequency Of Treatment Discharge Treatment Plan Physical Therapy Treatment Plan Bed Mobility Training,Transfer Training,Gait Training, Therapeutic Exercise,Balance Retraining,Post Op Education, Discharge Planning,Hot or Cold Pack,Neuromuscular Re-ed, Coordination Retraining,Manual Therapy Weight Bearing Status Weight Bearing Status Weight Bear as Tolerated Allowed Weight Bearing Amount (enter % RLE WBAT or #) (%) Recommendations To Nursing Amount of Assist Needed Standby Assistance Discharge Recommendations PT Discharge Recommendations Home with Assistance Transportation Needs at Discharge Private Vehicle
--- NOTE | 2024-03-17 09:30 | PC.NURSE ---
Patients dressing to r.hip is cdi. Given tylenol for discomfort and patient is sitting up in her chair, She ate well at breakfast and is visiting with her daughter. Using walker to ambulate.
--- NOTE | 2024-03-17 11:57 | CM.DANOTE ---
Initial Assessment Note Payer: [facility] Advantage PCP: Mango Mendoza Patient is a 75 y/o F admitted with infected right hip hematoma. Reviewed chart and spoke with patient at bedside, family member present, patient gave permission to speak in front of them. Patient states she resides at home with her adult son and was previously independent with all of her ADLs and drives herself, as needed. Patient currently on IVABX converting to PO after 48 hours and a drain placed, that will remain at d/c. She inquired about HHC services, but will likely f/u with her surgeon in the office after d/c for drain management. I did provide her with the options for HHC, she lives in [place]. Will f/u for choice if needed. No other needs identified. D/C possible in one day after switch to PO antibiotics. DC Plan: Home with family Discharge Planning/Care Management CM Discharge Assessment Start: 03/17/24 11:53 Freq: Status: Active Protocol: Document 03/17/24 11:53 KG (Rec: 03/17/24 11:56 KG [id number]) Discharge Planning Assessment Assigned Motor Expert Ciera Gore DPOA/Assigned Designee Name Nicolasa Romero Advance Directives? No History Provided By Patient Expected Length of Stay 2 Prior Living Arrangements House Household Members friend(s) Comment Patient reports she lives at home with her adult son Type of transporation used prior to Drives own vehicle admit Independent with ADL's Yes Is patient alert and oriented? Yes Caregiver for Another No Barriers to Discharge No Discharge Plan Home Community Services Home Health Aid Referrals Initiated None needed Additional Comment Gave patient list of HHC options, per her request, but will likel not need HHC and will f/u in office for drain care Medicare Choice List Provided Yes Medicare choice list reviewed on patient electronic tablet with
--- NOTE | 2024-03-17 13:31 | OT.IPNOTE ---
Pt has no OT needs, discharge OT eval orders.
--- NOTE | 2024-03-17 14:16 | CM.DPC ---
Patient now agreeable to SNF at d/c and choices given- her preference is [facility]. Notified admissions at [facility] of referral. Patient [facility] M[facility] and will need auth, PT eval complete, pending OT eval. Will f/u pending auth and approval.
[2024-03-17 19:00] VITALS: BP 104/64; PULSE 90; RESP 17; O2SAT 95
[2024-03-17] MEDS: IBUPROFEN 600 MG TABLET PO (20:44)
[2024-03-17] MEDS: SENNOSIDES 8.6 MG TABLET 17.2 MG PO (20:44)
[2024-03-18] MEDS: CEFAZOLIN 2 GM/100 ML PREMIX 100 ML IV ×2 (00:45→08:57)
[2024-03-18] MEDS: ACETAMINOPHEN 325 MG TABLET 650 MG PO (03:56)
[2024-03-18] MEDS: OXYCODONE IR 5 MG TABLET PO (07:00)
[2024-03-18] MEDS: VANCOMYCIN 1,000 MG/200 ML PIGGYBACK 200 MG IV (07:00)
[2024-03-18 08:57] VITALS: BP 111/63; PULSE 75
[2024-03-18] MEDS: DOCUSATE 100 MG CAPSULE PO (08:57)
[2024-03-18] MEDS: ASPIRIN EC 81 MG TABLET PO (08:57)
[2024-03-18] MEDS: lisinopriL 20 MG TABLET PO (08:57)
[2024-03-18] MEDS: hydroCHLOROthiazide 25 MG TABLET PO (08:59)
[2024-03-18] MEDS: polyethylene glycoL 3350 17 GM POWD.PACK PO (08:59)
[2024-03-18] MEDS: CHOLECALCIFEROL (VITAMIN D3) 1,000 UNIT TABLET 1000 UNIT PO (08:59)
[2024-03-18] MEDS: BISACODYL 10 MG SUPP PR (10:05)
--- NOTE | 2024-03-18 16:28 | P.PN_ITS ---
Subjective Subjective Interval history: Nicolasa is a pleasant 69 year old female who is POD# Exam Vital Signs (past 8 hours): - 03/18/24 08:57 Pulse Rate 75 Blood Pressure 111/63 Oxygen Delivery Method Room Air Oxygen Flow Rate 0 Objective Labs 03/17/24 06:20 03/17/24 06:20 [facility] Medical History Encounter for cholecystectomy Fibromyalgia Colon polyp Tubular adenoma Constipation PTSD (post-traumatic stress disorder) Hypertension Surgical History History of cholecystectomy History of section Social History household members: friend(s) Smoking Status: Current some day smoker alcohol intake: current Assessment & Plan Post-op Postoperative Procedures: Procedures Operation Date: 03/16/24 14:45 Actual Procedure Side Surgeon p Incision and Drainage Hip Abcess Right Linette Powers MD Quality VTE Deep Vein Thrombosis/Pulmonary Embolism Present on Admission: No
--- NOTE | 2024-03-18 16:39 | P.DS_ITS ---
History of Present Illness History of Present Illness Chief complaint: Infected R hip/hematoma Narrative: Nicolasa is a pleasant 69 year old female who is POD#2 s/p Irrigation and excisional debridement of right thigh mass and trochanteric bursectomy by Dr. Powers. This morning patient is up and walking around her room, she is in cheerful spirits and ready to be d/c to home. Patient lives near her son who is willing and able to provide additional support/care to patient as needed. She is ambulating and urinating well on her own w/o issue. Pain is mild-moderate and well controlled w/ oral Oxycodone. Denies fever, chills, chest pain, SOB, nausea, vomiting. Operative Date/Time/Diagnoses Date of procedure: 03/16/24 Time of procedure: 15:30 Pre-op diagnosis: Right thigh mass, probable abscess Post-op diagnosis: same Procedure & Clinicians Procedure: Irrigation and excisional debridement of right thigh mass and trochanteric bursectomy. Same procedure as scheduled: Yes Indications: This is a 69-year-old who is 3 months ago had a cortisone injection into her right hip trochanteric region for probable trochanteric bursitis. She noted increased swelling and pain in the right hip area. She had a mildly elevated white count and noted progressive enlargement of her right thigh mass. She was seen about 3 days ago she noted worsening over the weekend and spontaneous drainage. She had a preoperative MRI scan done to define the extent of the soft tissue swelling and mass. Surgeon: Linette Powers Click Yes if Unassisted: Yes Anesthesia Type: General Discharge Providers Provider Date of admission: 03/16/24 11:29 Discharge Date: 03/18/24 Primary care physician: Mango Mendoza MD Consults: 03/16/24 18:26 Consult to Discharge Planning Routine Comment: Consult to Occupational Therapy Evaluate & Treat Comment: Physician Instructions: Evaluate and treat Consult to Physical Therapy Evaluate & Treat Comment: wbat right lower extremity Physician Instructions: Evaluate and Treat Discharge provider: Antonina Melgar PA-C Summary Hospital Course Discharge Diagnosis: stable s/p Irrigation and excisional debridement of right thigh mass and trochanteric bursectomy Hospital Course: Relatively uncomplicated hospital course, patient required IV antibiotics and for a wound drain to be in place for 48 hours post-surgery while awaiting intra- op culture results. Exam Vital Signs (past 8 hours): - 03/18/24 08:57 Pulse Rate 75 Blood Pressure 111/63 Oxygen Delivery Method Room Air Oxygen Flow Rate 0 Narrative Exam Narrative: Patient standing and walking around her room comfortablyduring our interview today. No acute distress. AOx3. Grossly normal alignment of the RLE. 5/5 strength with DF, PF, EHL bilaterally. Gross sensation intact throughout bilateral lower extremities. Calves soft and non-tender bilaterally. SCDs are on and functioning. Brisk capillary refill, pulses intact. Post-surgical Ivelisse dressing intact and functioning over the right hip w/ mild drainage. Wound drain in place. Objective Labs 03/17/24 06:20 03/17/24 06:20 [facility] Medical History Encounter for cholecystectomy Fibromyalgia Colon polyp Tubular adenoma Constipation PTSD (post-traumatic stress disorder) Hypertension Surgical History History of cholecystectomy History of section Social History household members: friend(s) Smoking Status: Current some day smoker alcohol intake: current Discharge Assessment & Plan Assessment and Plan Assessment: stable s/p irrigation and excisional debridement of right thigh mass and trochanteric bursectomy Plan of Treatment: 1) Plan to discharge to home today with son/daughter/family. 2) Continue multimodal pain management with ice to the hip for additional pain control as needed. I will send pain medication script to patients pharmacy today. Patient will be placed on Keflex 500mg Q8 for 2 weeks for infection control. 3) ASA b.i.d. for DVT prophylaxis. 4) She may be WBAT. 5) Keep dressing intact, clean, dry until 2 week postop appointment. No soaking the incision site in pools or tubs. No topical ointments or creams to the incision site. The wound drain was removed by me today w/o complication, patient tolerated the procedure well. The drain skin opening was re-dressed in sterile fashion with gauze and Tegaderm. 6) Follow up at [facility] orthopedic in 2 weeks for a postop appointment and wound check. All patient's questions were answered, she demonstrates understanding and is in agreement with the plan. Call our office if any questions or concerns arise. Discussed red flag symptoms return precautions. Patient to monitor her temperature daily at home and monitor her postsurgical dressings for excessive drainage. Discharge Plan Discharge Plan Patient Disposition: Home Provider Discharge Comment: Check temperature daily at home and monitor wound site for any continued excessive drainage. Discharge orders & Medications Prescriptions: New aspirin 81 mg Tablet,Delayed Release (Dr/Ec) 81 mg PO BID Qty: 90 0RF docusate sodium 100 mg Capsule 100 mg PO BID Qty: 30 0RF oxycodone 5 mg Tablet 5 mg PO Q4-6H PRN (Reason: Pain, Moderate (4-6)) Qty: 20 0RF cephalexin 500 mg capsule 500 mg PO Q8H 14 Days Qty: 42 0RF Continued Vitamin D3 1,000 units tablet 1 tab PO DAILY hydrochlorothiazide 25 mg PO DAILY lisinopril 20 mg tablet 20 mg PO DAILY Patient Comments: TAKE ONE TABLET BY MOUTH ONE TIME DAILY hydroxyzine pamoate [Vistaril] 25 mg capsule 25 mg PO PRN PRN (Reason: Muscle Pain) diclofenac sodium [Arthritis Pain (diclofenac)] 1 % gel 2 g topical PRN MDD QID PRN (Reason: Pain (Scale Score 4-6)) Rx Instructions: Apply to area of pain up to 4 times daily. bupropion HCl 75 mg tablet 75 mg PO DAILY rosuvastatin 20 mg tablet 20 mg PO DAILY meloxicam 15 mg tablet 15 mg PO DAILY PRN (Reason: pain) Qty: 30 0RF Rx Instructions: Take with food and water, and Tums as necessary. Changed acetaminophen [Acetaminophen Extra Strength] 500 mg tablet 1,000 mg PO Q8HR Qty: 30 0RF Discontinued Colace 100 mg capsule 1 mg PO PRN PRN (Reason: Constipation) Follow up/Referrals: Mango Mendoza MD [Primary Care Provider] - Linette Powers MD [Physician] - (Follow-up in 2 weeks at [facility].Please call for appointment ) Diet/Activity/Treatments Diet: Diet as Tolerated Activity: Weightbearing as tolerated. Cold/Heat Therapy: Ice to the hip for additional pain control as needed Skin/Wound/Dressing Care Report to your healthcare provider any signs of infection, such as:: chills, fever, night sweats, unusual drainage and unusual redness Dressing: Keep dressing intact, clean and dry until 2 week post-op appointment. No soaking the incision site in pools or tubs. No topical ointments or creams to the incision site. Visit Report/Discharge Packet Instructions: DI for Prescription Opioid Use, DI for Incision and Drainage of a Joint Stand Alone Forms: Patient Portal/API, Stroke Signs & Symptoms, Surgery Discharge Discharge Data Primary Care Provider: Mango Mendoza VTE Deep Vein Thrombosis/Pulmonary Embolism Present on Admission: No
--- NOTE | 2024-03-25 04:21 | PC.NURSE ---
Late entry for 03/17/2024 Vancomycin infusion started at 0343 was completed at 0445.
--- NOTE | 2024-03-26 07:30 | PC.NURSE ---
Late Entry: Patients LR infusion complete at 1000am.
== END 2024-03-18 16:52 | disposition home or self-care (01) ==
PROVIDERS: Physician Assistant Surgical; Admitting Provider Orthopaedic Surgery; PCP Internal Medicine; Referring Provider Orthopaedic Surgery; Visit Provider Orthopaedic Surgery
PROC: 0J9C3ZZ Drainage of Pelvic Region Subcutaneous Tissue and Fascia, Percutaneous Approach (ICD-10-PCS; CPT 10180; principal; 2024-03-16 14:45)
DX: R22.31 Localized swelling, mass and lump, right upper limb (principal)
CPT/HCPCS: 27062; 36415; 73723; 80048; 85025; 85651; 86140; 87040; 87070; 87075; 87077; 87102; 87116; 87147; 87186; 87205; 87206; 87801; 96361; 96365; 96366; 96367; 97116; 97161; G0378; A9270; A9579; G0379; J0690; J1170; J3410

== ENCOUNTER 2024-04-11 11:13 | Emergency (ER) | payer OTHER, SELFPAY ==
[2024-03-16 12:27] VITALS: BMI 28.3
[2024-04-11 11:15] VITALS: BP 146/79; PULSE 79; RESP 16; TEMP 36.9; O2SAT 99; BMI 29.1
[2024-04-11 11:36] LABS: Appearance Urine UA CLEAR; Bilirubin Urine UA NEGATIVE (NEGATIVE); Color Urine UA YELLOW; Glucose Urine UA NEGATIVE (Negative); Ketones Urine UA NEGATIVE (NEGATIVE); Leukocyte Esterase Urine UA 1+ (NEGATIVE); Nitrite Urine UA POSITIVE (Negative); Occult Blood Urine UA 1+ (Negative); Protein Urine UA NEGATIVE (Negative); Specific Gravity Urine UA <=1.005 (1.000-1.035)
[2024-04-11 11:42] LABS: Bacteria Urine Many (>30); Culture Indicated Urine Specimen Cultured; RBC Urine 1-5/HPF (0-5/HPF); Squamous Epithelial Cell Urine None Seen (0-5/HPF); Urine Volume 10mL (spun); WBC Urine 5-10/HPF (0-5/HPF)
--- NOTE | 2024-04-11 11:45 | ED.FEMALEGU ---
HPI - Female Genitourinary <Melanie Espinosa PA-C - Last Filed: 04/11/24 12:04> General Chief complaint: Urogenital-Female Stated complaint: Poss uti, L knee pain Time Seen by Provider: 04/11/24 11:45 Source: patient Mode of arrival: Ambulatory History of Present Illness HPI Narrative: Patient is a very pleasant 69-year-old female presents to the emergency room department today with onset of urinary frequency urgency painful urination no other symptoms. Frequent UTIs. Nose she has a UTI, started Pyridium last night. Related Data Home Medications Medication Instructions Recorded Confirmed Vitamin D3 1 tab PO DAILY 03/07/21 03/16/24 hydrochlorothiazide 25 mg PO DAILY 03/07/21 03/16/24 lisinopril 20 mg tablet 20 mg PO DAILY 03/08/21 03/16/24 diclofenac sodium 1 % topical gel 2 g topical PRN PRN Pain (Scale 03/16/24 03/16/24 (Arthritis Pain (diclofenac)) Score 4-6) hydroxyzine pamoate 25 mg capsule 25 mg PO PRN PRN Muscle Pain 03/16/24 03/16/24 (Vistaril) bupropion HCl 75 mg tablet 75 mg PO DAILY 03/17/24 03/17/24 rosuvastatin 20 mg tablet 20 mg PO DAILY 03/17/24 03/17/24 Previous Rx's Medication Instructions Recorded acetaminophen 500 mg tablet 1,000 mg (2 x 500 mg) PO Q8HR #30 03/18/24 (Acetaminophen Extra Strength) tabs aspirin 81 mg tablet,delayed 81 mg PO BID #90 tabs 03/18/24 release docusate sodium 100 mg capsule 100 mg PO BID #30 caps 03/18/24 meloxicam 15 mg tablet 15 mg PO DAILY PRN pain #30 tabs 03/18/24 oxycodone 5 mg tablet 5 mg PO Q4-6H PRN Pain, Moderate 03/18/24 (4-6) #20 tabs cephalexin 500 mg capsule 500 mg PO BID 10 days #20 caps 04/11/24 nitrofurantoin 100 mg PO Q12H 5 days #10 caps 04/11/24 monohydrate/macrocrystals 100 mg capsule (Macrobid) phenazopyridine 200 mg tablet 200 mg PO TID 6 doses #9 tabs 04/11/24 (Pyridium) Allergies Allergy/AdvReac Type Severity Reaction Status Date / Time Penicillins Allergy Intermediate Hives Verified 01/11/22 10:56 Sulfa (Sulfonamide Allergy Hives Verified 01/11/22 10:56 Antibiotics) Review of Systems <Melanie Espinosa PA-C - Last Filed: 04/11/24 12:04> Review of Systems Narrative: Negative except as above Genitourinary Comments: Urinary frequency urgency painful urination Patient History <Melanie Espinosa PA-C - Last Filed: 04/11/24 12:04> Medical History Encounter for cholecystectomy Fibromyalgia Colon polyp Tubular adenoma Constipation PTSD (post-traumatic stress disorder) Hypertension Surgical History History of cholecystectomy History of section tobacco type: cigarettes alcohol intake frequency: holidays/special occasions only Substance Use Type: does not use Exam <Melanie Espinosa PA-C - Last Filed: 04/11/24 12:04> Initial Vital Signs Initial Vital Signs: Vital Signs Temperature 98.4 F 04/11/24 11:15 Pulse Rate 79 04/11/24 11:15 Respiratory Rate 16 04/11/24 11:15 Blood Pressure 146/79 H 04/11/24 11:15 Pulse Oximetry 99 04/11/24 11:15 Oxygen Delivery Method Room Air 04/11/24 11:15 Const Other: Alert and oriented no acute distress Eyes Other: Pupils PERRLA EOMs intact Skin Other: Warm pink and dry Neuro Other: Cranial nerves grossly intact Extrem Other: Range of motion, strength, pulses, cap refill preserved in the upper and lower extremities Psych Other: Appearance mental status, speech, movement, mood, affect, attitude, thought process, thought content and judgment are all intact <Sosa Duque MD - Last Filed: 04/11/24 18:42> Initial Vital Signs Initial Vital Signs: Vital Signs Temperature 98.4 F 04/11/24 11:15 Pulse Rate 79 04/11/24 11:15 Respiratory Rate 16 04/11/24 11:15 Blood Pressure 146/79 H 04/11/24 11:15 Pulse Oximetry 99 04/11/24 11:15 Oxygen Delivery Method Room Air 04/11/24 11:15 Scores <Melanie Espinosa PA-C - Last Filed: 04/11/24 12:04> GCS Citation: 15 Course <Melanie Espinosa PA-C - Last Filed: 04/11/24 12:04> Orders Ordered: ED Orders 04/11/24 11:24 Urinalysis and Microscopic Stat Urine Culture Stat Vital Signs Vital signs: Vital Signs - 8 hr 04/11/24 11:15 Temperature 98.4 F Pulse Rate 79 Respiratory Rate 16 Blood Pressure 146/79 H Pulse Oximetry 99 Oxygen Delivery Method Room Air Reviewed <Sosa Duque MD - Last Filed: 04/11/24 18:42> Orders Ordered: ED Orders 04/11/24 11:24 Urinalysis and Microscopic Stat Urine Culture Stat Vital Signs Vital signs: Vital Signs - 8 hr 04/11/24 11:15 Temperature 98.4 F Pulse Rate 79 Respiratory Rate 16 Blood Pressure 146/79 H Pulse Oximetry 99 Oxygen Delivery Method Room Air MDM - Female Genitourinary <Melanie Espinosa PA-C - Last Filed: 04/11/24 12:04> Lab Data Labs: Lab Results 04/11/24 Range/Units 11:24 Urine Color Yellow Urine Appearance Clear Urine pH 6.0 (4.5-8.0) Ur Specific [place] <=1.005 (1.000-1.035) Urine Protein Negative (Negative) Urine Glucose (UA) Negative (Negative) g/dL Urine Ketones Negative (NEGATIVE) Urine Occult Blood 1+ H (Negative) Urine Nitrate Positive H (Negative) Urine Bilirubin Negative (NEGATIVE) Urine Urobilinogen 1.0 (0.2) E.U./dL Ur Leukocyte Esterase 1+ H (NEGATIVE) Urine RBC 1-5/hpf (0-5/HPF) Urine WBC 5-10/hpf H (0-5/HPF) Ur Squamous Epith Cells None seen (0-5/HPF) Urine Bacteria Many (>30) H (None) Ur Culture Indicated? Specimen cultured Vol Urine Centrifuged 10ml (spun) MDM Narrative Medical decision making narrative: Pleasant 69-year-old female UTI like symptoms that started last night. Urinary frequency, urgency painful urination. No other symptoms, denies nausea, vomiting, diarrhea. No flank pain, no fever, no vaginal discharge. History of UTIs. Took Pyridium last night. Urine is grossly positive Prescription sent to the pharmacy Supportive therapy education ED precautions Differential diagnosis; urinary tract infection, cystitis, pyelonephritis. <Sosa Duque MD - Last Filed: 04/11/24 18:42> Lab Data Labs: Lab Results 04/11/24 Range/Units 11:24 Urine Color Yellow Urine Appearance Clear Urine pH 6.0 (4.5-8.0) Ur Specific [place] <=1.005 (1.000-1.035) Urine Protein Negative (Negative) Urine Glucose (UA) Negative (Negative) g/dL Urine Ketones Negative (NEGATIVE) Urine Occult Blood 1+ H (Negative) Urine Nitrate Positive H (Negative) Urine Bilirubin Negative (NEGATIVE) Urine Urobilinogen 1.0 (0.2) E.U./dL Ur Leukocyte Esterase 1+ H (NEGATIVE) Urine RBC 1-5/hpf (0-5/HPF) Urine WBC 5-10/hpf H (0-5/HPF) Ur Squamous Epith Cells None seen (0-5/HPF) Urine Bacteria Many (>30) H (None) Ur Culture Indicated? Specimen cultured Vol Urine Centrifuged 10ml (spun) Discharge Plan Departure Patient Disposition: Home Clinical Impression: Urinary tract infection Instructions: DI for Urinary Tract Infection (UTI) Activity Restrictions/Additional Instructions: Continue the Pyridium Increase fluids Consider cranberry supplement Prescription has been sent to your pharmacy You will need a repeat urine in 3-5 days after you finish the antibiotics Follow up with her primary care doctor Return to the emergency department as needed Return to the emergency department for fevers, nausea, vomiting, back pain. Prescriptions: New nitrofurantoin monohyd/m-cryst [Macrobid] 100 mg capsule 100 mg PO Q12H 5 Days Qty: 10 0RF Rx Instructions: must administer with a meal/food cephalexin 500 mg capsule 500 mg PO BID 10 Days Qty: 20 0RF phenazopyridine [Pyridium] 200 mg tablet 200 mg PO TID Qty: 9 0RF No Action Vitamin D3 1,000 units tablet 1 tab PO DAILY hydrochlorothiazide 25 mg PO DAILY lisinopril 20 mg tablet 20 mg PO DAILY Patient Comments: TAKE ONE TABLET BY MOUTH ONE TIME DAILY hydroxyzine pamoate [Vistaril] 25 mg capsule 25 mg PO PRN PRN (Reason: Muscle Pain) diclofenac sodium [Arthritis Pain (diclofenac)] 1 % gel 2 g topical PRN MDD QID PRN (Reason: Pain (Scale Score 4-6)) Rx Instructions: Apply to area of pain up to 4 times daily. bupropion HCl 75 mg tablet 75 mg PO DAILY rosuvastatin 20 mg tablet 20 mg PO DAILY aspirin 81 mg Tablet,Delayed Release (Dr/Ec) 81 mg PO BID Qty: 90 0RF docusate sodium 100 mg Capsule 100 mg PO BID Qty: 30 0RF oxycodone 5 mg Tablet 5 mg PO Q4-6H PRN (Reason: Pain, Moderate (4-6)) Qty: 20 0RF meloxicam 15 mg tablet 15 mg PO DAILY PRN (Reason: pain) Qty: 30 0RF Rx Instructions: Take with food and water, and Tums as necessary. acetaminophen [Acetaminophen Extra Strength] 500 mg tablet 1,000 mg PO Q8HR Qty: 30 0RF Referrals: Mango Mendoza MD [Primary Care Provider] - Stand Alone Forms: Patient Portal/API ED Sign-out <Sosa Duque MD - Last Filed: 04/11/24 18:42> Cosign ED Attending Cosignature Attestation: I was immediately available in the department for consultation throughout this patient's visit. Sosa Duque MD
== END 2024-04-11 12:32 | disposition home or self-care (01) ==
PROVIDERS: Emergency Medicine; Emergency Provider Physician Assistant; PCP Internal Medicine
DX: N39.0 Urinary tract infection, site not specified (principal)
CPT/HCPCS: 81001; 87077; 87086; 87186; 99281; 99282